=== PATIENT | male | born 1960 | race Caucasian/White ===

== ENCOUNTER 2017-11-22 11:18 | Day surgery (SDC) | payer OTHER ==
[~2017-11-22] VITALS: Ht 182.9 cm; Wt 146.8 kg
[~2017-11-22 11:18] MED LIST: ALLO300T2 PO; AVAP300T PO; CIPR500T4 PO; DICL75 PO; DYAZ37.52 PO; FERR325T PO; FOLI1 PO; HUMI20KI SQ; METH2.5 PO; POTA75TA PO; RANI150 PO; TYLE3 PO; VENTAER INH; VITA100018 PO; VITA250T5 PO
[2017-11-22] MEDS ORDERED: IOHEXOL 350 MG/ML 100 ML BTL (for Cath Lab) OTHER ONE (11:19)
[2017-11-22 11:58] VITALS: BP 153/73; PULSE 72; RESP 18; TEMP 97.7; O2SAT 96
[2017-11-22] MEDS ORDERED: NS 1000P @30 MLS/HR (KVO) IV SCH (12:00)
[2017-11-22] MEDS ORDERED: RANI150T PO (12:07)
[2017-11-22] MEDS ORDERED: POTASSIUM PO (12:07)
[2017-11-22] MEDS ORDERED: TYLETAB34 PO (12:07)
[2017-11-22] MEDS ORDERED: IRBE300T11 PO (12:07)
[2017-11-22] MEDS ORDERED: ASPI81CH6 CHEW (12:07)
[2017-11-22] MEDS ORDERED: IRONTAB5 PO (12:07)
[2017-11-22] MEDS ORDERED: METO25TA3 PO (12:07)
[2017-11-22] MEDS ORDERED: TRIA37.5 PO (12:07)
[2017-11-22] MEDS ORDERED: DOXA4TAB3 PO (12:07)
[2017-11-22] MEDS ORDERED: METH2.5T PO (12:07)
[2017-11-22] MEDS ORDERED: VITA500T35 PO (12:07)
[2017-11-22] MEDS ORDERED: ALLO300T2 PO (12:07)
[2017-11-22] MEDS ORDERED: VITA100018 PO (12:07)
[2017-11-22] MEDS ORDERED: FOLI1TAB6 PO (12:07)
[2017-11-22] MEDS ORDERED: ETAN50CA SQ (12:12)
[2017-11-22 12:39] LABS: AUTOMATED NEUTROPHIL # 5.9 TH/MM3 (1.8-7.7); BASOPHIL % 0.1 % (0.0-2.0); HEMATOCRIT 40.7 % (39.0-51.0); HEMOGLOBIN 13.8 GM/DL (13.0-17.0); LYMPH % 10.9 % (9.0-44.0); LYMPHOCYTE # 0.7 TH/MM3 (1.0-4.8); MEAN CORPUSCULAR HEMOGLOBIN 33.6 PG (27.0-34.0); MEAN PLATELET VOLUME 8.4 FL (7.0-11.0); MONO % 1.6 % (0.0-8.0); MONOCYTE # 0.1 TH/MM3 (0-0.9); NEUT % 87.4 % (16.0-70.0); PLATELET COUNT 203 TH/MM3 (150-450); RED BLOOD COUNT 4.11 MIL/MM3 (4.50-5.90); RED CELL DISTRIBUTION WIDTH 15.1 % (11.6-17.2); WHITE BLOOD COUNT 6.8 TH/MM3 (4.0-11.0)
[2017-11-22] MEDS ORDERED: MIDAZOLAM HCL 2 MG/2 ML VIAL ONE ×2 (12:43→13:11)
[2017-11-22] MEDS ORDERED: HEPARIN-NS/PF FLUSH BAG 2,000 ML IV FLUSH ONE (12:43)
[2017-11-22 12:47] LABS: PROTHROMBIN TIME - PATIENT 10.4 SEC (9.8-11.6)
[2017-11-22 12:54] LABS: BICARBONATE 27.6 MEQ/L (21.0-32.0); CALCIUM 8.9 MG/DL (8.5-10.1); CREATININE 1.11 MG/DL (0.60-1.30)
--- NOTE | 2017-11-22 13:46 | CATHPROC ---
[employer] HIS Report Study Information Study Number Admission Scheduled Start Study Start [id number] Nov 22 2017 11:18AM 11/22/2017 Nov 22 2017 12:12PM Loop Service Cardiac Catheterization Admit Source Facility Department Other [facility] - [facility] Physician and Clinical Staff Initial Danny Mahan Process Improvement Analyst Arturo Macario RN Process Improvement Analyst Riddhi Allan,MICHEAL Recorder Dianna Ojeda,RT(R) (BS) Scrub Cammy NoriegaRT(R) Procedures Performed Procedure Location (Site) Vessel Name Angiogram LV LV Ventricle Coronary Angiograms LCA Left Coronary L Heart Cath Equipment Time Purchasing Director Description Size Mfg Part Number Used/Scraped TRANSDUCER, TRUWAVE [id number] 12:16 GALARZA OSEGUERA * Used W/STOCKCOCK *[id number] 13:29 [employer] MEDICAL VASCADE, FR5 CLOSURE SYSTEM FR 5 Used *[id number] INTRODUCER SET, 12:16 [employer] FR 5 [id number] *[id number] Used MICROPUNCTURE, STIFFENED 538-476 *[id number] 538-420 *[id number] *[id number] 12:16 [email or web address] INDUSTRIES PACK, CCL CUSTOM * Used *[id number] 12:16 [email or web address] PACER PEN, SKIN DUAL W/ RULER * Used *[id number] 12:16 [employer] WIRE, 3MMJ .035 180CM 180CM Used *[id number] PROBE COVER, STERILE [id number] 12:16 [employer] * Used ULTRASOUND W/ GEL *[id number] 12:16 NAMIC MANIFOLD, 4 PORT * Used *[id number] 12:16 [employer] OMNIPAQUE, 350 MG, 150ML 150ML [id number] Used [id number] 12:16 [employer] BLANKET,WARM AIR CCL * Used *[id number] 12:16 [employer] MED[employer] SHEATH, FR4 TERUMO (10CM) FR 4 Used *[id number] 13:28 [employer] MED[employer] SHEATH, FR5 TERUMO (10CM) FR 5 Used *[id number] History: Current Medications Medication Dosage/Unit Route Frequency Last Date/Time Taken Beta Elvira ASA History: Allergies Allergy Reaction oxycodone Nausea/Vomiting acetaminophen Nausea/Vomiting penicillin G Hives soap povidone-iodine History: Risk Factors Family History of Hypertension Dyslipidemia Previous [place] Previous Heart Failure Premature CAD Yes No Yes No No Prior Valve Prior PCI Prior CABG Surgery No No No Cerebrovascular Peripheral Artery Chronic Lung On Dialysis Diabetes Disease Disease Disease No No No No No History: Stress Tests Stress or Imaging Studies Performed No History: Other Current Smoker Method Quit Packs a Day Years Used Pack Years Yes Cigarettes 40 Years Ago 1 3 3 Labs Hgb (g/dl) RBC (MIL/MM3) WBC (l/cumm) Platelets (thousands) 11.60-17.00 4.00-5.90 4.00-11.00 150.00-450.00 13.8 4.1 6.8 203 BUN (mg/dl) Creatinine (mg/dl) BUN:Creatinine (1:x) 7.00-18.00 0.50-1.30 10.00-20.00 29 1.0 29 INR (PTT:PT) 0.90-1.10 1 CPK-MB (ng/ML) 0.50-3.60 Not Drawn Medication Medication Total Dose (Bolus/Oral) Medication Total Dosage/Unit 1% XYLOCAINE 20 mL FENTANYL 75 mcg VERSED 3 mg Medications (Bolus/Oral) Medication Time Given Dosage/Unit Administered By Reason VERSED 11/22/2017 1:02:47 PM 2 mg Renaldo, Arturo 2 mg VERSED given in lab by Arturo Macario RN in Left Antecubital via Peripheral IV. 1% XYLOCAINE 11/22/2017 1:02:59 PM 20 mL Danny Hassan 20 mL 1% XYLOCAINE given in lab by Danny Hassan in Right Groin via Subcutaneous. FENTANYL 11/22/2017 1:03:54 PM 50 mcg Renaldo, Arturo 50 mcg FENTANYL given in lab by Arturo Macario RN in Left Antecubital via Peripheral IV. VERSED 11/22/2017 1:12:16 PM 1 mg Renaldo, Arturo 1 mg VERSED given in lab by Arturo Macario RN in Left Antecubital via Peripheral IV. FENTANYL 11/22/2017 1:17:11 PM 25 mcg Renaldo, Arturo 25 mcg FENTANYL given in lab by Arturo Macario RN in Left Antecubital via Peripheral IV. Medication (Drip) Medication Time Given Dosage/Unit Concentration/Unit Diluent (ml) Solution IV Solutions 11/22/2017 12:33:07 PM 0 mL (IV) 500 NaCl .9 IV Solutions given in lab by Arturo Macario RN in Left Antecubital via Peripheral IV. Pump/Drip Flow = 30 ml/hr using NaCl .9. Initial Case Assessment Cardiovascular HR Rhythm NIBP Chest Pain 97 reg 138/71 0 Edema Present Skin color Skin None Normal Warm Dry Circulatory - Right Pulses Dorsalis Pedis Femoral 2 1 Scale (0,1,2,3,4,d) Circulatory - Left Pulses Dorsalis Pedis Femoral 1 1 Scale (0,1,2,3,4,d) Circulatory - Lower Extremities Color Lower Right Color Lower Left Normal Normal Neurological State Oriented to time-place- Alert Moves all extremities person Respiration - General Respiration Rate SpO2 (%) (B/min) 20 97 Chronological Log Time Study Chronological Log 12:30:02 Patient arrived via Bed. 12:30:06 Patient Name, D.O.B, / Armband Verified By R.N. 12:32:08 Consent signed by the physician and the patient and verified by the [facility] [employer] [facility] staff. 12:32:09 Pre-op and post- op instructions given; patient acknowledges understanding of instructions. 12:32:09 Verbal Stimulation=2 Physical Stimulation=2 Airway=2 Respiration=2 TOTAL=8. (0=absent, 1=li mited, 2=present) 12:32:11 Presedation assessment performed by Automatic Wheel Line Operator RN. 12:32:52 Patient has been NPO for More than 6Hrs. 12:32:54 Skin Breakdown skin tear on left lower quadrant 12:33:05 Jes Prominences Protected 12:33:06 A # 20 IV was noted in the Antecubital (left). Grade = 0 IV Solutions given in lab by Arturo Macario RN in Left Antecubital via Peripheral IV. Pump/Drip Flow = 30 ml/hr using 12:33:07 NaCl .9. 12:33:08 History and physical on the chart or being dictated. Assessment: Initial Case, HR=97 BPM, Rhythm=reg, PBKG=292/71 mmhg, Chest Pain=0, Edema=None, Co dewin=Normal, Skin = Warm, Dry Right Pulses: Dev Ped=2, Femoral=1 Left Pulses: Dev Ped=1, Femoral=1 12:33:08 Lower Right Extremities: Color=Normal Lower Left Extremities: Color=Normal Neurological: State=Alert, Ox3, CLEMENTS Respiration: Resp=20 B/min, SpO2=97 % Vitals capture started with the following parameters, Patient=Adult, Interval=5 min, Initial Pr ltvbsk=985 mmHg, 12:33:58 Deflation Rate=5 mmHg, Cuff placed on Right Arm 12:35:10 HR=73 bpm, DKQW=671/71 mmhg, SpO2=94.0 %, Pain=0, Shelia=10, Hassan=2 12:39:40 HR=73 bpm, ULRV=041/77 mmhg, SpO2=91.0 %, Resp=22 B/min, Pain=0, Shelia=10, Hassan=2 12:42:15 Bilateral groins prepped with 2% chlorhexidine, and draped after a 3 minute waiting time. 12:44:39 HR=88 bpm, SBBJ=575/83 mmhg, SpO2=94.0 %, Resp=20 B/min, Pain=0, Shelia=10, Hassan=2 12:45:06 Reference ECG taken 12:45:15 MD paged 12:47:18 Pressure channel 1 zeroed. 12:49:40 HR=72 bpm, YQOJ=912/80 mmhg, SpO2=92.0 %, Resp=22 B/min, Pain=0, Shelia=10, Hassan=2 12:50:03 MD responded 12:54:41 HR=72 bpm, VUPD=279/82 mmhg, SpO2=94.0 %, Resp=17 B/min, Pain=0, Shelia=10, Hassan=2 12:58:19 MD arrived. 12:59:42 HR=71 bpm, ZLPO=181/75 mmhg, SpO2=94.0 %, Resp=23 B/min, Pain=0, Shelia=10, Hassan=2 Time Out. Correct patient, correct procedure, correct physician, power injector loaded with con trast with surgical team 13:02:04 present. Time Out Concurred by MD and individual staff in procedure. 13:02:22 Case Start 13:02:47 2 mg VERSED given in lab by Arturo Macario RN in Left Antecubital via Peripheral IV. 13:02:59 20 mL 1% XYLOCAINE given in lab by Danny Hassan in Right Groin via Subcutaneous. 13:03:54 50 mcg FENTANYL given in lab by Arturo Macario RN in Left Antecubital via Peripheral IV. 13:04:39 HR=73 bpm, LELP=613/93 mmhg, SpO2=96.0 %, Resp=23 B/min, Pain=0, Shelia=10, Hassan=2 13:09:09 Access site was Right Femoral Artery. A INTRODUCER SET, MICROPUNCTURE, STIFFENED FR 5 was advanced into the Fem Art (right) using the :09:19 Percutaneous technique. A SHEATH, FR4 TERUMO (10CM) FR 4 was exchanged in the Fem Art (right). This was necessary in or [place] to 13:09:32 accomodate a larger catheter. 13:09:40 HR=71 bpm, RVNC=554/88 mmhg, SpO2=96 %, Resp=18 B/min, Pain=0, Shelia=10, Hassan=2 A JL 4.0 INFINITI CATHETER FR 4 was advanced over a wire. OMNIPAQUE, 350 MG, 150ML 150ML was us ed for 13:11:04 injections. 13:12:16 1 mg VERSED given in lab by Arturo Macario RN in Left Antecubital via Peripheral IV. 13:12:57 The LCA was injected and visualized at various angles. OMNIPAQUE, 350 MG, 150ML 150ML used . Recorded Pressure: Ao, HR=70, Condition=Condition 1 13:13:09 (Aorta) Ao 121/74/93 13:14:41 HR=72 bpm, YCWT=395/76 mmhg, SpO2=91.0 %, Resp=26 B/min, Pain=0, Shelia=10, Hassan=2 13:16:49 Catheter was removed A 3DRC INFINITI CATHETER FR 4 was advanced over a wire. OMNIPAQUE, 350 MG, 150ML 150ML was used for 13:16:50 injections. 13:17:11 25 mcg FENTANYL given in lab by Arturo Macario RN in Left Antecubital via Peripheral IV. 13:19:42 HR=73 bpm, NLPV=749/88 mmhg, SpO2=93.0 %, Resp=19 B/min, Pain=0, Shelia=10, Hassan=2 13:19:43 Catheter was removed A PIGTAIL ANG. INFINITI CATHETER FR 4 was advanced over a wire. OMNIPAQUE, 350 MG, 150ML 150ML was used 13:19:52 for injections. Recorded Pressure: LV, HR=76, Condition=Condition 1 13:21:46 (Left Ventricle) LV 136/16/31 13:23:46 The LV was injected at 8 cc/sec for a total of 32. OMNIPAQUE, 350 MG, 150ML 150ML used. 13:24:44 HR=82 bpm, FRBB=459/85 mmhg, SpO2=94.0 %, Resp=22 B/min, Pain=0, Shelia=10, Hassan=2 13:25:13 Pressure channel 1 zero failed. 13:25:20 Pressure channel 1 zeroed. Recorded Pressure: LV, Ao, HR=77, Condition=Condition 1 13:25:48 (Left Ventricle) LV 130/17/33, (Aorta) Ao 134/79/103 13:26:04 Catheter was removed A SHEATH, FR5 TERUMO (10CM) FR 5 was exchanged in the Fem Art (right). This was necessary in or [place] to achieve 13:28:47 vascular hemostasis. 13:29:45 HR=70 bpm, XWVI=628/86 mmhg, SpO2=95.0 %, Resp=19 B/min, Pain=0, Shelia=10, Hassan=2 13:30:32 VASCADE, FR5 CLOSURE SYSTEM FR 5 placement in the Fem Art (right) 13:34:44 Case End 13:34:46 HR=67 bpm, HUVF=572/84 mmhg, SpO2=92.0 %, Resp=21 B/min, Pain=0, Shelia=10, Hassan=2 13:35:07 Catheter(s) removed without difficulty 13:35:54 No case complications noted. 13:36:04 Bedside Report will be given. 13:36:06 Implantable Device card placed in patient's chart. 13:36:09 A Left Heart Cath was performed. 13:37:04 Sterile dressing applied to site 13:39:14 Vitals capture stopped. 13:42:06 Patient moved to [facility] End Study - Contrast Media Used In Study Contrast Total Opened (mL) Total Used (mL) Total Wasted (mL) Omnipaque 80 80 0 End Study - Maximum Contrast Load Max Contrast Load (mL) 734.1 End Study - Radiation Exposure Fluoro Time (minutes) 3.6 End Study - Sheaths Sheaths Pulled By Sheath Hold Time (min) Danny Hassan End Study - Patient Disposition Complications Transferred To Interventional Outcome No Automatic Wheel [employer] Operator Holding No attempt made
--- NOTE | 2017-11-22 14:26 | MA ---
cc: Danny Hassan MD, Dannie E MD 11/22/2017 INDICATIONS FOR Unstable angina, severe chest pain occurring at rest and with mild exertion, confusing symptoms, also symptoms of possible severe GERD. CONSENT: Fully informed consent was obtained prior to the procedure. The risks of , bleeding, stroke, heart attack, foreseen and unforeseen complications were reviewed. The patient appeared to fully understand and accept the risks. PROCEDURE: The patient was draped and prepped in the usual manner. The right femoral artery was entered using a micropuncture technique. Prior to this the patient was given sedation with Versed and fentanyl. Using ultrasound micropuncture technique with moderate difficulty, since the patient had a large thigh, the right femoral artery was entered using an introducer sheath. A 4-Haitian catheter was placed into the left main and another 4-Haitian catheter into the right main. Multiple angiographic views were carried out. A pigtail catheter was used to intubate the ventricle and an LV gram performed. At the end of the procedure, all catheters were removed. The 4-Haitian sheath was up-sized to a 5-Haitian sheath and through this, a VASCADE closing system was used, given the size of the patient's thigh and difficulty in palpating the femoral artery. At the end of the procedure the patient was returned to his room in stable condition. FINDINGS: I. HEMODYNAMICS: The LV pressure was 136 with an LV end-diastolic pressure of 31. The aortic pressure was 134/79 with a mean aortic pressure of 103. There was no evidence of significant gradient on pullback across the aortic valve. II. LEFT VENTRICULOGRAM: The overall left ventricular ejection fraction was estimated at 60%. There was no evidence of mitral regurgitation. III. CORONARIES: The left main is free of significant disease. The left anterior descending artery had a proximal 25% stenosis just before the origin of a small first diagonal branch. The remainder of the LAD was free of significant disease. There was a small to medium second diagonal branch that was free of significant disease. The circumflex artery was large. The first obtuse marginal branch was large. The second obtuse marginal branch was medium. At the ostium, the second obtuse marginal had 50% stenosis. The third obtuse marginal branch was small. The fourth obtuse marginal branch was medium. The right coronary artery was a small, nondominant vessel and the left system was dominant. CONCLUSION: 1. The patient given sedation as noted above. 2. Mild disease in the LAD and mild to moderate disease at the circumflex as noted above. No need for stenting or bypass surgery. We will continue medical management with risk factor reduction. 3. The patient will followup with the undersigned in 1-2 weeks and followup with Dr. Zuniga in due course. MD VALERIE Moy/PABLO , 01:48 PM , 02:25 PM
[2017-11-23] MEDS ORDERED: POTA99TA4 PO (11:17)
--- NOTE | 2017-11-23 20:57 | EKG ---
Date Performed: 11/22/2017 Time Performed: 12:09:36 PTAGE: 57 years EKG: Sinus rhythm . Normal ECG PREVIOUS TRACING : 10/14/1998 08.15 Since the previous tracing, no significant change noted DOCTOR: Juanjose Mas Interpretating Date/Time 11/23/2017 20:56:34
== END 2017-11-22 16:17 | disposition home or self-care (01) ==
LOC: HDOC 11:18 → HDIC 11:18 → HDOC 16:17
PROVIDERS: ATTEND Internal Medicine Cardiovascular Disease
DX: I25.110 Atherosclerotic heart disease of native coronary artery with unstable angina pectoris (principal); I10 Essential (primary) hypertension; I87.2 Venous insufficiency (chronic) (peripheral); E66.9 Obesity, unspecified; Z68.41 Body mass index [BMI] 40.0-44.9, adult
CPT/HCPCS: 80048; 85025; 85610; 85730; 93005; 93458; 99152; 99153; C1760; C1769; C1893; G0269; J1644; J2250; J3010; J7030; Q9967